=== PATIENT | female | born 1960 | race Two or more races ===

== ENCOUNTER 2016-09-24 11:05 | Emergency (ER) | payer OTHER ==
[~2016-09-24] VITALS: Ht 147.3 cm; Wt 100.0 kg
[~2016-09-24 11:05] MED LIST: ASPI-515 PO; ATEN25TA PO; CYAN10005 PO; GLIM4TAB PO; LEVE100020 PO; LISI-167 PO; LISI-170 PO; MAGN400T26 PO; METF10002 PO; METO25TA35 PO; SIMV20TA PO; TERB250T3 PO
[2016-09-24] MEDS ORDERED: SODIUM CHLORIDE 0.9% 1,000ML IVBOLUS ONE (11:30)
[2016-09-24] MEDS ORDERED: SODIUM CHLORIDE FLUSH 10ML SYR IVF ONE (11:30)
[2016-09-24] MEDS ORDERED: METF10002 PO (11:48)
[2016-09-24] MEDS ORDERED: LISI-170 PO (11:48)
[2016-09-24 11:57] LABS: HEMOGLOBIN 12.3 g/dL (11.7-16.4)
[2016-09-24 12:04] LABS: BLOOD UREA NITROGEN 11 mg/dL (7-18)
[2016-09-24 12:08] LABS: IS PT STATUS REG ER OR PRE ER? YES
[2016-09-24] MEDS ORDERED: ACETAMINOPHEN 325 MG TABLET PO ONE (13:00)
[2016-09-24 14:53] VITALS: BP 115/72
== END 2016-09-24 14:55 | disposition home or self-care (01) ==
LOC: ED 12:10
DX: M94.0 Chondrocostal junction syndrome [Tietze] (principal); R42 Dizziness and giddiness; I10 Essential (primary) hypertension; E11.9 Type 2 diabetes mellitus without complications; E78.5 Hyperlipidemia, unspecified; Z90.49 Acquired absence of other specified parts of digestive tract; F12.10 Cannabis abuse, uncomplicated
CPT/HCPCS: 36415; 71010; 80048; 82040; 83735; 84484; 85025; 85610; 85730; 93005; 96360; 99285; J7030

== ENCOUNTER 2017-01-17 22:02 | Emergency (ER) | payer OTHER ==
[~2017-01-17] VITALS: Ht 147.3 cm; Wt 110.7 kg
[2017-01-17] MEDS ORDERED: ASPIRIN 81 MG TABLET CHEW PO ONE (23:00)
[2017-01-17] MEDS ORDERED: ASPIRIN 81 MG TABLET CHEW ONE (23:06)
[2017-01-17 23:19] LABS: BLOOD UREA NITROGEN 19 mg/dL (7-18)
[2017-01-17 23:23] LABS: IS PT STATUS REG ER OR PRE ER? YES
[2017-01-18 00:53] VITALS: BP 105/62
== END 2017-01-18 01:00 | disposition home or self-care (01) ==
LOC: ED 01-18 00:54
DX: R07.89 Other chest pain (principal); I11.9 Hypertensive heart disease without heart failure; E83.42 Hypomagnesemia; E78.5 Hyperlipidemia, unspecified; E11.65 Type 2 diabetes mellitus with hyperglycemia; D72.829 Elevated white blood cell count, unspecified; I10 Essential (primary) hypertension
CPT/HCPCS: 36415; 71010; 80048; 82040; 84443; 84484; 85025; 93005

== ENCOUNTER 2017-03-05 16:58 | Emergency (ER) | payer OTHER ==
[~2017-03-05] VITALS: Ht 147.3 cm; Wt 109.2 kg
[2017-03-05] MEDS ORDERED: ASPIRIN 81 MG TABLET CHEW PO ONE (18:00)
[2017-03-05] MEDS ORDERED: SODIUM CHLORIDE FLUSH 10ML SYR IVF ONE (18:00)
[2017-03-05 18:02] LABS: HEMATOCRIT 39.7 % (34.6-47.8); HEMOGLOBIN 13.1 g/dL (11.7-16.4); WHITE BLOOD COUNT 8.8 x10^3/uL (3.4-10)
[2017-03-05 18:12] LABS: BLOOD UREA NITROGEN 13 mg/dL (7-18)
[2017-03-05 18:20] LABS: IS PT STATUS REG ER OR PRE ER? YES
[2017-03-05] MEDS ORDERED: MAGNESIUM CARBONATE 54 MG/5 ML ORAL SOL PO ONE (20:00)
[2017-03-05] MEDS ORDERED: MECLIZINE CHEWABLE 25 MG TAB PO ONE (20:00)
[2017-03-05] MEDS ORDERED: MECLIZINE CHEWABLE 25 MG TAB ONE (20:06)
[2017-03-05 20:30] VITALS: BP 112/72
== END 2017-03-05 20:44 | disposition home or self-care (01) ==
LOC: ED 20:38
DX: H81.12 Benign paroxysmal vertigo, left ear (principal); R00.2 Palpitations; E83.42 Hypomagnesemia; E11.9 Type 2 diabetes mellitus without complications; E78.5 Hyperlipidemia, unspecified; G40.909 Epilepsy, unspecified, not intractable, without status epilepticus; I10 Essential (primary) hypertension; Z79.82 Long term (current) use of aspirin; Z90.49 Acquired absence of other specified parts of digestive tract
CPT/HCPCS: 36415; 71010; 80048; 82040; 83735; 83880; 84439; 84443; 84484; 85025; 93005; 99285